=== PATIENT | female | born 1990 | race Caucasian/White ===

== ENCOUNTER → 2019-10-09 12:44 | Outpatient (BNVA) | payer OTHER, SELFPAY | PROVIDERS: Family Provider Nurse Practitioner Family; PCP Nurse Practitioner Family; Visit Provider Obstetrics & Gynecology | DX: Z01.89 Encounter for other specified special examinations (principal) | CPT/HCPCS: 84315 ==

== ENCOUNTER → 2019-11-06 08:00 | Outpatient (BNVA) | payer OTHER, SELFPAY | PROVIDERS: Family Provider Nurse Practitioner Family; PCP Nurse Practitioner Family; Visit Provider Obstetrics & Gynecology | DX: Z34.90 Encounter for supervision of normal pregnancy, unspecified, unspecified trimester (principal) | CPT/HCPCS: 82950; 84315; 85027 ==

== ENCOUNTER → 2019-11-20 16:13 | Outpatient (BNVA) | payer OTHER, SELFPAY | PROVIDERS: Family Provider Nurse Practitioner Family; Visit Provider Obstetrics & Gynecology | DX: Z01.89 Encounter for other specified special examinations (principal) | CPT/HCPCS: 84315 ==

== ENCOUNTER → 2019-12-04 16:01 | Outpatient (BNVA) | payer OTHER, SELFPAY | PROVIDERS: Family Provider Nurse Practitioner Family; Visit Provider Obstetrics & Gynecology | DX: Z01.89 Encounter for other specified special examinations (principal) | CPT/HCPCS: 84315 ==

== ENCOUNTER → 2019-12-19 09:04 | Outpatient (BNVA) | payer OTHER, SELFPAY | PROVIDERS: Family Provider Nurse Practitioner Family; Visit Provider Obstetrics & Gynecology | DX: O99.013 Anemia complicating pregnancy, third trimester (principal) | CPT/HCPCS: 82728; 83540; 83550; 84315; 85027 ==

== ENCOUNTER → 2020-01-01 10:02 | Outpatient (BNVA) | payer OTHER, SELFPAY | PROVIDERS: Family Provider Nurse Practitioner Family; PCP Nurse Practitioner Family; Visit Provider Obstetrics & Gynecology | DX: O09.893 Supervision of other high risk pregnancies, third trimester (principal); O99.340 Other mental disorders complicating pregnancy, unspecified trimester | CPT/HCPCS: 84315; 87081 ==

== ENCOUNTER → 2020-01-08 10:03 | Outpatient (BNVA) | payer OTHER, SELFPAY | PROVIDERS: Family Provider Nurse Practitioner Family; Visit Provider Obstetrics & Gynecology | DX: Z46.89 Encounter for fitting and adjustment of other specified devices (principal) | CPT/HCPCS: 84315 ==

== ENCOUNTER → 2020-01-15 09:01 | Outpatient (BNVA) | payer OTHER, SELFPAY | PROVIDERS: Family Provider Nurse Practitioner Family; Visit Provider Obstetrics & Gynecology Female Pelvic Medicine and Reconstructive Surgery | DX: Z01.89 Encounter for other specified special examinations (principal) | CPT/HCPCS: 84315 ==

== ENCOUNTER 2020-01-20 05:01 | Inpatient (IN) | payer OTHER, SELFPAY ==
[2020-01-20] VITALS (27 sets, daily range): BP systolic 96–133; BP diastolic 61–80; PULSE 43–66; RESP 14–17; TEMP 36.4–36.8; O2SAT 95–96
[2020-01-20 05:41] LABS: Basophils # 0.1 10^3/uL (0.0-0.1); Basophils % 0.5 %; Eosinophils # 0.1 10^3/uL (0.0-0.8); Eosinophils % 1.1 %; Hematocrit 33.7 % (37.0-47.0); Hemoglobin 10.9 g/dL (11.5-15.3); Lymphocytes # 2.4 10^3/uL (0.8-4.8); Lymphocytes % 19.4 %; Mean Corpuscular HGB Conc 32.3 g/dL (30.0-36.0); Mean Corpuscular Hemoglobin 28.4 pg (28.0-34.0); Mean Corpuscular Volume 87.8 fL (81-99); Mean Platelet Volume 10.2 fL (7.4-10.4); Monocytes % 8.3 %; Neutrophils # 8.6 10^3/uL (1.8-7.7); Neutrophils % 70.1 %; Nucleated Red Blood Cells % 0 %; Platelet Count 245 10^3/cmm (130-400); Red Blood Count 3.84 10^6/uL (4.1-5.3); Red Cell Distribution Width 13.8 % (12.1-15.1); White Blood Count 12.3 10^3/uL (4.0-10.0)
--- NOTE | 2020-01-20 06:12 | PC.NURSE ---
Patient states she had a small sip of water with brushing teeth at 0415 AR RN
[2020-01-20] MEDS: lactated ringers 1,000 ML 999 ML IV (06:24)
[2020-01-20] MEDS: clindamycin 900 MG/50 ML PREMIX 100 MG IV (06:24)
--- NOTE | 2020-01-20 06:45 | P.HP_ITS ---
Providers/Chief Complaint Admitting Physician: Ilan Olivarez MD Chief Complaint: Previous section undesired fertitity HPI RATE EXAMINER History of Present Illness Miesha Farah is a 29 year old female 4, para 0-1-2-1 with an LMP of 04/22/2019 and an EDC of 01/27/2020 based on LMP and consistent with a 7-week ultrasound, which places her at 39-0/7 weeks gestation. She is presenting today for a repeat section and sterilization. She states she is adamant that she does not want any further children and wants to proceed with the sterilization. She denies any new health problems since being seen in the office. She denies any recent illnesses. She reports the baby has been moving well. She reports occasional contractions. She denies vaginal bleeding. She denies leaking of fluid. LABS 2013 Cystic fibrosis: Screen negative. 07/04/2019 Blood type: O positive (Du variant). Antibody screen: Negative. Intake CBC: WBC 11.6, Hgb 12.2, Hct 37.3, MCV 87.8, Plt 285. Rubella: Immune (117) Hepatitis B surface antigen: Negative. Hepatitis C antibody: Negative. RPR: Nonreactive. HIV: Negative. Urine drug screen: Negative. Urine culture: Less than 5000 CFU, mixed organisms. TSH: 1.48. 07/18/2019 Gonorrhea: Negative. Chlamydia: Negative. Pap smear: (12/13/2018) Negative for intraepithelial lesion or malignancy. 08/22/2019 Quad screen: Declined. Panorama: Declined. 11/06/2019 28-week CBC: WBC 11.9, Hgb 9.8, Hct 30.9, MCV 86.8, Plt 284. GCT: 104. 01/01/2020 GBS: Negative. OBSTETRICAL ULTRASOUNDS LMP 04/22/2019 ---> EDC 01/27/2020. === 1. 06/10/2019 ---> 7-1/7 WG ---> EDC 01/26/2020. Consistent with dates. Performed at [facility]. FHR present. 2. 09/11/2019 ---> 21-0/7 WG ---> EDC 01/22/2020. EFW 14 oz. (395 g) 84%. Performed at [facility]. Consistent with dates. Normal anatomic survey. Female. Breech. FHR 137 BPM. Anterior placenta without previa. Visually normal amniotic fluid volume. PARALEGAL ASSISTANT 4.9 cm. Cervix 4.4 cm. Review of Systems Const: Denies: fever or chills ENMT: Denies: throat pain or nasal congestion Card: Denies: chest pain, palpitations or lightheadedness Resp: Denies: shortness of breath, productive cough, non-productive cough or wheezing GI: Denies: abdominal pain, nausea, vomiting or diarrhea : Denies: painful urination, genital itching, vaginal bleeding or vaginal discharge Skin/Breast: Denies: rash or new lesion Neuro: Denies: headache, dizziness or seizure-like activity Psych: Denies: anxiety or depression Endo: Denies: excessive urination, excessive thirst or cold intolerance Robinson/Lymph: Denies: easy bruising or easy bleeding Medications/Allergies Allergies Allergy/AdvReac Type Severity Reaction Status Date / Time Penicillins Allergy Rash with Verified 01/15/20 07:23 Amoxicillin PFSH RATE EXAMINER PFSH: Medical History Blood type O+ Depression Surgical History History of delivery (11/28/13) Primary LTCS. Dx: Bleeding placenta previa. Performed by Dr. Olivarez at [facility] in [place], [place]. Family History Mother Hypertension Father Hypertension Grandfather Hypertension Maternal and Paternal Heart disease Maternal and Paternal Hyperlipidemia Maternal and Paternal Grandmother Hypertension Maternal and Paternal Diabetes Maternal Heart disease Maternal Stroke Paternal Hyperlipidemia Maternal and paternal Colon cancer Maternal - diagnosed in her 60s Social History Smoking and tobacco status: former smoker Quit status (tobacco): has quit using tobacco Year quit tobacco: 05/26/2019 Former quit date comment: Quit smoking 05/26/2019. Started smoking at age 18-----1/2 pack per day. D Alcohol intake: former Former alcohol use details: Occational 1+ of wine every couple of weeks Substance/Drug Use: never Other Female Reproductive History: Hx Age of Menarche: 13 Duration of mens es: 3-5 days Cycle Length: every 28 days Menstrual flow: normal/abnormal: normal History History History 4 Term 0 Miscarriages/Ectopic 2 1 Living Children 1 Other History: 1 --->11/28/2013, Emergency section at 35 5/7 weeks gestation for complete placenta previa with hemorrhage per patient. Male (Benjamin), weighing 5 lb 8 1/[address] Olivarez at [facility] in [place], [place]. 2 --->06/27/2018, Miscarriage at approx. 6 weeks gestation. 3 --->10/2018, ?Chemical . She states that her period was 2 days late and urine test was positive. Care IRIS Calculator Estimated Delivery Date Method Current WG Current Estimate 01/27/20 LMP (Certain) 39w 0d Expected Delivery Route/Plan Repeat section with tubal ligation (complete salpingectomy) Specific Issues/Plans * . Previous section x for repeat CD on 01/20/20 * History of depression, * Anxiety and depression currently well controlled on Effexor * Anemia on iron OB Visit Log Initial Weight: 140 lb Date -?-?-?-?--?-?-?-?-?-?-?- EGA Weight BP Albumin -?-?-?-?-?-?-?-?-?-?-?-?- Glucose Nitrate -?-?-?-?-?-?-?-?-?-?-?-?- Blood Fun Ht PRES HR MVMT -?-?-?-?-?-?-?-?-?-?-?-?- Edema Dilation Effacement -?--?-?-?-?-?-?-?-?-?-?- Station 06/17/19 -?-?-?-?-?-?-?-?-?-?-?- 8w 0d 140 lb (+0 oz) 121/70 ALB: NEG GLUC: Norm -?-?-?-?-?-?-?-?-?-?-?-?- NIT: NEG -?-?-?-?-?-?-?-?-?-?-?-?- -?-?-?-?-?-?-?-?-?-?-?-?- Feet: 0 Not examined -?-?-?-?-?-?-?-?-?-?-?- 07/04/19 -?-?-?-?-?-?-?-?-?-?-?- 10w 3d 142 lb 4 oz (+2 lb 4 oz) 122/84 ALB: NEG GLUC: NORM -?-?-?-?-?-?-?-?-?-?-?-?- NIT: NEG -?-?-?-?-?-?-?-?-?-?-?-?- 169 BPM/DOPPLER Not detected -?-?-?-?-?-?-?-?-?-?-?-?- Hands: 0 Face: 0 Feet: 0 -?-?-?-?-?-?-?-?-?-?-?- 07/18/19 -?-?-?-?-?-?-?-?-?-?-?- 12w 3d 145 lb 4 oz (+5 lb 4 oz) 106/68 ALB: NEG GLUC: NORM -?-?-?--?-?-?-?-?-?-?-?-?- NIT: NEG -?-?-?-?-?--?-?-?-?-?-?-?- 161 BPM/DOPPLER Not detected -?-?-?-?-?-?-?-?-?-?--?-?- Hands: 0 Face: 0 Feet: 0 Closed, uneffaced Uneffaced -?-?-?-?-?-?-?-?-?-?-?- 08/22/19 -?-?-?-?-?-?-?-?-?-?-?- 17w 3d 145 lb 4 oz (+5 lb 4 oz) 116/68 ALB: NEG GLUC: NORM -?-?-?-?-?-?-?-?-?-?-?-?- NIT: NEG -?-?-?-?-?-?-?-?-?-?-?-?- 141 BPM/DOPPLER Present -?-?-?-?-?-?-?-?-?-?-?-?- Hands: 0 Face: 0 Feet: 0 -?-?-?-?-?-?-?-?-?-?-?- 09/11/19 -?-?-?-?-?-?-?-?-?-?-?- 20w 2d 148 lb 6.08 oz (+8 lb 6.08 oz) 110/62 ALB: NEG GLUC: NORM -?-?-?-?-?-?-?-?-?-?-?-?- NIT: NEG -?-?-?-?-?-?-?-?-?-?-?-?- 137 BPM/DOPPLER Present -?-?-?-?-?-?-?-?-?-?-?-?- Hands: 0 Face: 0 Feet: 0 -?-?-?-?-?-?-?-?-?-?-?- 10/09/19 -?-?-?-?-?-?-?-?-?-?-?- 24w 2d 154 lb (+14 lb) 116/84 ALB: NEG GLUC: NORM -?-?-?-?-?-?-?-?-?-?-?-?- NIT: NEG -?-?-?-?-?-?-?-?-?-?-?-?- 23.5CM INCONCLUSIVE 145 BPM/DOPPLER -?-?-?-?-?-?-?-?-?-?-?-?- Not examined -?-?-?-?-?-?-?-?-?-?-?- 11/06/19 -?-?-?-?-?-?-?-?-?-?-?- 28w 2d 159 lb 8 oz (+19 lb 8 oz) 112/82 ALB: NEG GLUC: NORM -?-?-?-?-?-?-?-?-?-?-?-?- NIT: NEG -?-?-?-?-?-?-?-?-?-?-?-?- 28CM 146 BMP/DOPPLER Present -?-?-?-?-?-?-?-?-?-?-?-?- Hands: 0 Face: 0 Feet: 0 -?-?-?-?-?-?-?-?-?-?-?- 11/20/19 -?-?-?-?-?-?-?-?-?-?-?- 30w 2d 167 lb 6.08 oz (+27 lb 6.08 oz) 130/72 ALB: NEG GLUC: NORM -?-?-?-?-?-?--?-?-?-?-?-?- NIT: NEG -?-?-?-?-?-?-?-?--?-?-?-?- 31CM 142 BPM/DOPPLER Present -?-?-?-?-?-?-?-?-?-?-?-?- Hands: 0 Face: 0 Feet: 1 -?-?-?-?-?-?-?-?-?-?-?- 12/04/19 -?-?-?-?-?-?-?-?-?-?-?- 32w 2d 168 lb 8 oz (+28 lb 8 oz) 128/82 ALB: NEG GLUC: NORM -?-?-?-?-?-?-?-?-?-?-?-?- NIT: NEG -?-?-?-?-?-?-?-?-?-?-?-?- 33.5CM 121 BPM/DOPPLER Present -?-?-?-?-?-?-?-?-?-?-?-?- Hands: 0 Face: 0 Feet: 1 -?-?-?-?-?-?-?-?-?-?-?- 12/16/19 -?-?-?-?-?-?-?-?-?-?-?- 34w 0d -?-?-?-?-?-?-?-?-?-?-?-?- -?-?-?-?-?-?-?-?-?-?-?-?- -?-?-?-?-?-?-?-?-?-?-?-?- -?-?-?-?-?-?-?-?-?-?-?- 12/19/19 -?-?-?-?-?-?-?-?-?-?-?- 34w 3d 170 lb 4 oz (+30 lb 4 oz) 118/82 Neg (Negat markel) -?-?-?-?-?-?-?-?-?-?-?-?- Norm (Normal) Negative (Negat markel) -?-?-?-?-?-?-?-?-?-?-?-?- Neg (Negative) 34.5 131 act markel -?-?-?-?-?-?-?-?-?-?-?-?- absent -?-?-?-?-?-?-?-?-?-?-?- 01/01/20 -?-?-?-?-?-?-?-?-?-?-?- 36w 2d 172 lb 4 oz (+32 lb 4 oz) 128/86 Neg (Negat markel) -?-?-?-?-?-?-?-?-?-?-?-?- Norm (Normal) Negative (Negat markel) -?-?-?-?-?-?-?-?-?-?-?-?- Neg (Negative) 37 127 act markel -?-?-?-?-?-?-?-?-?-?-?-?- absent fingertip -?-?-?-?-?-?-?-?-?-?-?- -4 01/08/20 -?-?-?-?-?-?-?-?-?-?-?- 37w 2d 170 lb (+30 lb) 136/88 Trace (Negati ve) -?-?-?-?-?-?-?-?-?-?-?-?- Norm (Normal) Negative (Negat markel) -?-?-?-?-?-?-?-?-?-?-?-?- Neg (Negative) 37 - 137 active -?-?-?-?-?-?-?-?-?-?-?-?- trace pedal n/a -?-?-?-?-?-?-?-?-?-?-?- 01/15/20 -?-?-?-?-?-?-?-?-?-?-?- 38w 2d 170 lb (+30 lb) 126/80 Neg (Negative ) -?-?-?-?-?-?-?-?-?-?-?-?- Norm (Normal) Negative (Negat markel) -?-?-?-?-?-?-?-?-?-?-?-?- Neg (Negative) 37.5 vertex 145 active -?-?-?-?-?-?-?-?-?-?-?-?- trace not examined -?-?-?-?-?-?-?-?-?-?-?- 01/20/20 -?-?-?-?-?-?-?-?-?-?-?- 39w 0d 167 lb (+27 lb) -?-?-?-?-?-?-?-?-?-?-?-?- -?-?-?-?-?-?-?-?-?-?-?-?- 135 -?-?-?-?-?-?-?-?-?-?-?-?- -?-?-?-?-?-?-?-?-?-?-?- Notes Visit Date: 01/20/20 No visit notes to display Visit Date: 01/15/20 Patient presents today at 38+2 weeks scheduled to undergo repeat section and tubal next week has no questions today OB is okay. Clem Rosario DO on 01/15/20 Visit Date: 01/08/20 JULI @ 37w2d-----> no complaints; previous delivery x2-for repeat at 39 weeks; GBS negative; desires sterilization-private insurance; anemia compliant with iron; depression controlled with medication Elena Hardwick MD on 01/08/20 Visit Date: 01/01/20 JULI at 36-2/7 WG. No complaints. GBS testing today. Labor precautions discussed. Scheduled for repeat section with tubal ligation on 01/20/2020. Started on Effexor today due to history of depression. Continue iron due to anemia. Ilan Olivarez MD on 01/02/20 posterior, deepika Olivarez MD on 01/01/20 Visit Date: 12/19/19 No visit notes to display Visit Date: 12/16/19 No visit notes to display Visit Date: 12/04/19 JULI at 32-2/7 WG. ?Reporting increased edema. ?Patient wearing compression hose. ?Still planning to receive pertussis vaccine. ?Plan hemogram at 34 weeks. ?Scheduled for repeat section and tubal ligation. Visit Date: 11/20/19 JULI at 30-2/7 WG. ? labor precautions discussed. ?GCT normal. ? Anemia - taking iron twice a day, plan hemogram at 34 weeks. ?Scheduled for repeat section with tubal ligation on January 19. Visit Date: 11/06/19 JULI at 28-2/7 WG. ?No new complaints. ?GCT and hemogram today. ?Pertussis vaccine recommended. ? labor precautions discussed. ?Patient has decided to have a repeat section with complete removal of both fallopian tubes. ?We will schedule during 39th week. ?Weight gain expectations for the rest the discussed. Visit Date: 10/09/19 JULI at 24 2/7 weeks. The patient was counseled regarding care, signs and symptoms of labor. ?She was counseled regarding gestational di abetes screening at the next visit. Visit Date: 09/11/19 JULI at 20-2/7 WG. ?No new complaints. ?Screening ultrasound performed and reviewed with patient. ?Patient planning repeat section with tubal ligation. Visit Date: 08/22/19 JULI at 17-3/7 WG. ?No complaints. ?Declined Quad screen and Panorama. ?Ultrasound in approximately 3 weeks for anatomic survey. Visit Date: 07/18/19 No visit notes to display Visit Date: 07/04/19 Initial OB visit at 10-4/7 WG based on LMP and consistent with 7 week ultrasound. ?No complaints. ?Sure of LMP. ? labs drawn. ?Previous - considering repeat . ?Depression and anxiety present before . ?Not requiring medication at this time. ?OB exam next visit. Visit Date: 06/17/19 OBI at 8.0 WG----------> 28 y/o with LMP of 04/22/19 and EDC of 01/27/20 based on LMP and consistent with 7 week U/S. - hx of previous c/s; low transverse section documented in [address] Olivarez - hx of delivery; and 2013 at 35 and 5 weeks gestation due to placenta previa - hx of placenta previa; did not require pp transfusion - hx of anxiety and depression prior to ; weaned off effexor prio r to conceiving; discussed potential need during the . -Ob packet provided. Reviewed routine vist schedule, labs, approved medications in , discussed the importance of avoiding nicotine/alcohol/drugs and the effects this has on her and the , and when to notify the doctor. Medical and obstetrical history reviewed. ? -Continue vitamins. - labs at next visit; discussed NIPT, QUAD, AFP, CF. All questions answered to her satisfaction. Greater than 50% of the visit was spent in counseling and coordinating obstetrical care. Total visit time: 30 minutes. Vitals/I&O/Wt Last Vital Signs Temp 98.3 F 01/20/20 05:17 Weight last 48 hrs Weight 167 lb Physical Exam Const: COMMON NORMALS: no apparent distress, average body habitus, alert and well nourished GENERAL APPEARANCE: well developed ORIENTATION/CONSCIOUSNESS: Yes oriented to person, Yes oriented to place and Yes oriented to time Neck/C-Spine: COMMON NORMALS: thyroid normal GENERAL: Yes trachea midline THYROID: thyroid normal Resp: COMMON NORMALS: normal respiratory effort and clear to auscultation bilaterally AUSCULTATION: clear to auscultation bilaterally Cardio: COMMON NORMALS: regular rate, regular rhythm, no gallops, no murmurs and no rub RATE: regular rate RHYTHM: regular rhythm GI: COMMON NORMALS: soft to palpation, non-tender, no hepatosplenomegaly and no masses (Except for nontender gravid uterus.) INSPECTION: Yes scar (Pfannenstiel scar present) AUSCULTATION: Yes normoactive bowel sounds PALPATION: Yes soft, Yes no hepatosplenomegaly and No hernia : EXTERNAL FEMALE EXAM: No hernia Neuro: SENSORIUM/ORIENTATION: Yes alert, Yes oriented to person, Yes oriented to place and Yes oriented to time Psych: COMMON NORMALS: affect normal MOOD & AFFECT: Yes euthymic mood Data : 01/20/20 05:00 A&P Assessment and plan (1) Supervision of other high risk pregnancies, third trimester: 4, para 0-1-2-1 with an LMP of 04/22/2019 and an EDC of 01/27/2020 based on LMP and consistent with a 7-week ultrasound. 1. at 39-0/7 weeks gestation. 2. No new complaints. 3. Prior section, see separate diagnosis. Presenting for repeat section today. 4. Desires complete removal of fallopian tubes. Status: Acute (2) Encounter for maternal care for low transverse scar from previous delivery: 11/28/2013: Emergency due to bleeding placenta previa. Documen marcella low transverse section. (Today's visit) Patient desires repeat section. Risks of section was discussed with the patient and her partner including bleeding to the point of needing a blood transfusion, infection, and injury to intra-abdominal organs including bowel, bladder, blood vessels, nerves, and ureters. Questions were answered. Patient still desires to proceed with surgery. Status: Acute (3) Mental disorder affecting : 8 weeks--patient had depression and anxiety prior to --weaned off Effexor for approx 1 year prior to conception; feeling well without meds. 01/01/2020: Started Effexor XR 75 mg daily (Today's visit) Reports has been doing well with Effexor. Status: Acute Qualifiers: Trimester: third trimester Qualified Code(s): O99.343 - Other mental disorders complicating , third trimester (4) Anemia affecting : 07/04/2019: H&H 12.2/37.3, MCV 87.8 11/06/2019: (28 wk) H&H 9.8/30.9, MCV 86.8. Started on iron twice a day. 12/19/2019: (34 wk) H&H 10.1/31.8, MCV 89.1 (Today's visit) Blood count has improved. H&H is 10.9 and 33.7 today. Patient has been taking iron. Status: Acute Qualifiers: Trimester: third trimester Qualified Code(s): O99.013 - Anemia compl icating , third trimester (5) Sterilization education: 11/06/2019: Permanence of sterilization was discussed with the patient in detail. Alternatives including control pills, Ortho Evra, NuvaRing, Depo- Provera, IUDs, Nexplanon, condoms, diaphragms, family planning methods, and vasectomy were discussed with the patient. Risks and failure rates associated with these methods were discussed. Different sterilization methods including and interval sterilization by partial salpingectomy, complete salpingectomy, tubal fulguration, and Falope ring application were discussed including failure rates, surgical risks, and expectations following surgery. Inability of complete salpingectomy to be reversed was discussed. Risk of ectopic was discussed. (Patient has private insurance). Patient desires complete removal of tubes. (Today's visit) Patient reports that she still wants to proceed with sterilization. Permanence of the procedure was reviewed with the patient. The inability of the complete removal of the tubes to be reversed was discussed. Specific risks of the surgery including failure rate and risk for ectopic were discussed. Questions were answered. Patient still wished to proceed with complete removal of tubes. Status: Acute Attestations Medical Necessity Statement*: Patient having a repeat section performed today. Coding Level of Care Code Acute Flash Designer for Tomás Hardy Diagnoses Supervision of other high risk pregnancies, third trimester O09.893 Encounter for maternal care for low transverse scar from previous delivery O34.211 Mental disorder affecting O99.343 Trimester: third trimester Anemia affecting O99.013 Trimester: third trimester Sterilization education Z30.09
[2020-01-20] MEDS: citric acid-sodium citrate 30 mL UDC PO (06:49)
[2020-01-20] MEDS: famotidine 20 mg/2 mL INJ IVP (06:50)
[2020-01-20] MEDS: metoclopramide 5 mg/mL SDV 2 mL 10 MG IVP ×2 (06:50→12:38)
[2020-01-20] MEDS: lactated ringers 1,000 ML 125 ML IV (06:56)
--- NOTE | 2020-01-20 08:18 | PM.OP ---
Operative Report Date of procedure: January 20, 2020 Pre-op Diagnosis: 1. Previous section, declines 2. at 39-0/7 weeks gestation 3. Anemia in in third trimester 4. Mental disorder affecting in third trimester (depression) 5. Undesired fertility. Post-op Diagnosis: 1. Previous section, declines - delivered 2. at 39-0/7 weeks gestation 3. Anemia in - delivered 4. Mental disorder in - delivered 5. Undesired fertility 6. Viable female Procedure Done: Repeat low transverse section with bilateral complete salpingectomy for sterilization Specimens removed/disposition: Right and left fallopian tubes Surgeon: Ilan Olivarez Ceramics Engineer: None Anesthesia: Other (Spinal) Estimated blood loss (mL): 200 IV fluids (mL): 800 Complications: None Findings: 1. Viable female , cephalic presentation, weighing 5 lbs 15 oz (2990 g) with a length of 19 inches and Apgars of 9 at 1 minute and 9 at 5 minutes. 2. Normal-appearing uterus, tubes, and ovaries. Brief History: Patient is a 29-year-old white female 4, para 0-1-2-1 with an LMP of 04/22/2019 and an EDC of 01/27/2020 based on LMP and consistent with 7-week ultrasound. She is currently at 39-0/7 weeks gestation. She presented to labor and delivery for repeat section and sterilization. Prior to sterilization, she was still adamant that she wanted to proceed with it. She was requesting complete removal of both tubes. Procedure: Patient was taken to the operating room where spinal anesthesia was obtained. She was prepped and draped in the usual sterile fashion in a dorsal supine position with a leftward tilt. Ornelas catheter and sequential compression boots had been placed prior to starting the case. Patient's prior Pfannenstiel scar was excised with a knife and incision was carried down to the underlying fascia with the knife. Fascia was incised in the midline with the knife and extended laterally with Mckeon scissors. Superior aspect of the fascia was grasped with Ayad clamps, elevated, and sharply and bluntly dissected. The inferior aspect of the fascia was grasped with Ayad clamps, elevated, and sharply and bluntly dissected. The rectus muscles were in the midline. Peritoneum was sharply entered. Peritoneal incision was extended both superiorly and inferiorly with good visualization of the bladder. Bladder blade was inserted. The vesicouterine peritoneum was tented up and sharply entered. It was extended laterally and the bladder flap was created digitally. Bladder blade was reinserted. A transverse incision was made with the knife in the lower uterine segment. Clear fluid was obtained upon entry into the uterine cavity. The infant's head was delivered. One loop of loose nuchal cord was noted and reduced. The rest of the delivered atraumatically with one loop of loose body cord noted. Nose and mouth were suctioned with bulb suction. Cord was clamped and cut and the was handed off to Dr. Neville and the waiting nurses. Cord blood was obtained. Placenta was delivered via uterine massage. Patient received 20 units of Pitocin in the IV fluids. The uterus was exteriorized and cleared of clots and debris. The uterine incision was closed in a running locking fashion using 0 Vicryl suture. The incision was imbricated using 0 Vicryl suture in a horizontal mattress fashion. The incision was inspected and noted to be hemostatic. The left fallopian tube was grasped with [place] clamps. The mesosalpinx was transilluminated, identifying the vessels coming to the tubes. Using 2-0 plain suture, the vessels coming through the mesosalpinx to the fallopian tube were individually tied. The mesosalpinx was cut with electrocautery until the proximal end of the tube and the vessels at the distal end of the tube were reached. The proximal end of the tube was tied with a free tie of 0 plain suture. The vessels at the distal end of the tube were tied with a free tie of 0 plain suture. The remaining portion of the mesosalpinx and the proximal end of the tube were then cut and the tube completely excised. The right fallopian tube was grasped with [place] clamps. The mesosalpinx was transilluminated, identifying the vessels coming to the tubes. Using 2-0 plain suture, the vessels coming through the mesosalpinx to the fallopian tube were individually tied. The mesosalpinx was cut with electrocautery until the proximal end of the tube and the vessels at the distal end of the tube were reached. The proximal end of the tube was tied with a free tie of oh plain suture. The vessels at the distal end of the tube were tied with a free tie of oh plain suture. The remaining portion of the mesosalpinx and tube were then cut and the tube was completely excised. Posterior cul-de-sac was thoroughly irrigated and cleared of clots and blood. The uterus was returned to the abdomen. The uterine incision was irrigated and noted to be hemostatic. The gutters were cleared of clots and blood. The rectus muscles and peritoneum were reapproximated in the midline using interrupted stitches of 2-0 Vicryl suture. The muscle layer was irrigated and noted to be hemostatic. The fascia was reapproximated using 0 Vicryl suture in a running fashion. The subcutaneous layer was irrigated and brought to hemostasis using electrocautery. It was reapproximated using 3-0 plain suture in an interrupted fashion. Skin was reapproximated using 4-0 Vicryl suture in a subcuticular fashion. Steri-Strips were applied. Patient tolerated the procedures well. Sponge, needle, and instrument counts were correct. DRAINS: Ornelas catheter POSTOPERATIVE STATUS: The patient was left to recover in satisfactory condition
[2020-01-20] MEDS: lanolin oint 7 gm 1 APPLIC TOPICAL (10:15)
[2020-01-20] MEDS: ondansetron 2 mg/ML SDV 2 mL 4 MG IVP ×2 (10:15→11:48)
[2020-01-20] MEDS: dextrose 5%-lactated ringers 1,000 ML 125 ML IV ×2 (10:15→18:32)
[2020-01-20] MEDS: scopolamine 1.5 Patch 1 PATCH TRANSDERMA (13:01)
[2020-01-20] MEDS: ketorolac 30 mg/mL INJ IVP (13:52)
[2020-01-21] MEDS: HYDROcodone-acetaminophen 5-325 mg Tablet PO ×2 (00:28→11:09)
[2020-01-21 02:10] VITALS: BP 105/68; PULSE 49; RESP 16; TEMP 36.6; O2SAT 95
[2020-01-21 04:45] VITALS: BP 110/7; PULSE 61; RESP 16; TEMP 36.3; O2SAT 97
[2020-01-21 06:05] LABS: Hematocrit 27.3 % (37.0-47.0); Hemoglobin 8.6 g/dL (11.5-15.3); Mean Corpuscular HGB Conc 31.5 g/dL (30.0-36.0); Mean Corpuscular Hemoglobin 28.4 pg (28.0-34.0); Mean Corpuscular Volume 90.1 fL (81-99); Mean Platelet Volume 10.3 fL (7.4-10.4); Platelet Count 230 10^3/cmm (130-400); Red Blood Count 3.03 10^6/uL (4.1-5.3); Red Cell Distribution Width 13.9 % (12.1-15.1); White Blood Count 14.7 10^3/uL (4.0-10.0)
--- NOTE | 2020-01-21 08:43 | ANE.PACU2 ---
 Inpatient post-anesthesia follow up: Airway intact: Yes Vital signs: Temperature 97.4 F Pulse Rate 61 Respiratory Rate 16 Blood Pressure 110/7 Pulse Oximetry 97 Oxygen Delivery Me thod Room Air Oxygen Flow Rate Fraction of Inspir ed Oxygen Hydration adequate: Yes Nausea and vomiting: No Mental status: Baseline Additional Comments: no headaches or weakness or signs of spinal site infection
--- NOTE | 2020-01-21 09:23 | P.PN_ITS ---
Subjective Subjective: Interval history: Reports feeling much better today. States had significant nausea and vomiting yesterday after . States nausea and vomiting is gone this morning, but currently has the scopolamine patch on. Denies lightheadedness or dizziness with ambulation. Denies shortness of breath or chest pains. Reports tolerating clear liquids this morning. Denies passing flatus. Denies problems with urination. Reports pain has been well controlled with the Duramorph. Vitals/I&O/Wt Last Vital Signs Temp 97.4 F L 01/21/20 04:45 Pulse 61 01/21/20 04:45 Resp 16 01/21/20 04:45 BP 110/7 01/21/20 04:45 Pulse Ox 97 01/21/20 04:45 01/20/20 01/21/20 01/21/20 22:59 06:59 14:59 Intake Total 1000 / 1902.75 964.583 / 2867.333 Output Total 350 / 770 550 / 1320 Balance 650 / 1132.75 414.583 / 1547.333 Weight last 48 hrs Weight 167 lb Physical Exam Const: COMMON NORMALS: no apparent distress, average body habitus, alert and well nourished GENERAL APPEARANCE: well developed ORIENTATION/CONSCIOUSNESS: Yes oriented to person, Yes oriented to place and Yes oriented to time Resp: COMMON NORMALS: normal respiratory effort and clear to auscultation bilaterally AUSCULTATION: clear to auscultation bilaterally Cardio: COMMON NORMALS: regular rate, regular rhythm, no gallops, no murmurs and no rub RATE: regular rate RHYTHM: regular rhythm GI: COMMON NORMALS: soft to palpation, no hepatosplenomegaly and no masses (Except for mildly tender, firm uterus, 2 fingerbreadths below umbilicus) INSPECTION: Yes incision (Clean, dry, and intact with Steri-Strips present) AUSCULTATION: Yes normoactive bowel sounds PALPATION: Yes soft, Yes tender (Lower abdomin), Yes no hepatosplenomegaly and No hernia : EXTERNAL FEMALE EXAM: No hernia Extremity: COMMON NORMALS: no calf tenderness GENERAL: Yes edema (Trace to 1+ lower extremity edema) Neuro: SENSORIUM/ORIENTATION: Yes alert, Yes oriented to person, Yes oriented to place and Yes oriented to time Psych: COMMON NORMALS: affect normal MOOD & AFFECT: Yes euthymic mood Skin: COMMON NORMALS: no rashes or lesions noted GENERAL SKIN EXAM: no rashes or lesions noted Urinary Catheter Management^: Ornelas: Cath Placed During This Visit: yes, but has since been removed by the nurse Reason for Continuing Indwelling Catheter: Other Urinary Catheter Date of Insertion: 01/20/20 Urinary Catheter Time of Insertion: 07:00 Date Urinary Catheter Removed: 01/21/20 Time Urinary Catheter Discontinued: 02:30 Data : 01/21/20 05:50 A&P Assessment and plan (1) delivery delivered: Postoperative day 1, status post repeat section. Patient doing well overall. Initially had nausea and vomiting requiring parenteral antiemetics yesterday. This has resolved as of this morning. She is currently tolerating clear liquids. Will advance to regular diet when passing flatus. Increase activities today. Discussed with patient use of oral pain medication as Duramorph wears off. Status: Acute (2) Anemia during , delivered, current hospitalization: Patient had anemia prior to delivery and H&H dropped expected amount following delivery. Patient will be continued on oral iron after discharge. Status: Acute (3) Mental disorder in , delivered: Patient had been on Effexor the last month of the . This has been continued. Status: Acute (4) Sterilization education: Patient had sterilization (bilateral complete salpingectomy) performed at time of section. Status: Acute Attestations Medical Necessity Statement*: Patient is 1 day status post section. She will be staying in the hospital at least until tomorrow. She is currently n ot tolerating regular food. Coding Level of Care Code Acute [employer] Project Manager for Chg Fwd Diagnoses delivery delivered O82 Anemia during , delivered, current hospitalization O99.02 Mental disorder in , delivered O99.344 Sterilization education Z30.09
[2020-01-21] MEDS: docusate sodium 100 mg Capsule PO ×2 (09:24→17:44)
[2020-01-21] MEDS: venlafaxine ER (24HR) 75 mg Capsule PO (09:24)
[2020-01-21] MEDS: prenatal vitamin Capsule 1 CAP PO (09:24)
[2020-01-21 11:02] VITALS: BP 111/71; PULSE 56; RESP 18; TEMP 36.7
[2020-01-21 16:38] VITALS: BP 131/77; PULSE 60; RESP 18; TEMP 36.8
[2020-01-21 21:00] VITALS: BP 132/86; PULSE 60; RESP 16; TEMP 36.3; O2SAT 98
--- NOTE | 2020-01-21 23:43 | PC.NURSE ---
Patient reports that she passed gas while ambulating and is now snacking on cheese crackers.
[2020-01-22] MEDS: HYDROcodone-acetaminophen 5-325 mg Tablet PO ×2 (00:55→05:40)
[2020-01-22 05:00] VITALS: BP 133/79; PULSE 68; RESP 17; TEMP 36.7; O2SAT 97
--- NOTE | 2020-01-22 08:14 | PM.DCS ---
Discharge Providers Date of Admission: 01/20/20 05:01 Date of Discharge: January 22, 2020 Attending Provider at Admission: Ilan Olivarez MD Attending Provider at Discharge: Ilan Olivarez MD Diagnoses at Discharge Discharge Diagnosis (1) delivery delivered: Status: Acute (2) Sterilization education: Status: Acute (3) Anemia during , delivered, current hospitalization: Status: Acute (4) Mental disorder in , delivered: Status: Acute Reason for Visit Reason for Visit: Reason For Visit: [facility] Hospital Course: Patient is a 29-year-old white female 4, now para 1-1-2-2 with an LMP of 04/22/2019 and an EDC of 01/27/2020 based on LMP and consistent with a 7-week ultrasound, which placed her at 39-0/7 weeks gestation at the time of admission. Patient had had a prior section and was presenting for repeat section. She had also decided that she did not want any further children and wanted to proceed with sterilization. She was requesting complete removal of fallopian tubes. Her had been complicated by prepregnancy depression and also anemia during . She was admitted to the hospital for a repeat low transverse section and bilateral complete salpingectomy were performed. She tolerated the surgery well. She had a viable female weighing 5 lbs 15 oz (2990 g) with a length of 19 inches and Apgars of 9 at 1 minute and 9 at 5 minutes. Patient received Duramorph in the spinal for pain management following surgery. Following surgery patient had significant postoperative nausea and vomiting requiring multiple medications before symptoms came under control. This included IV Zofran, IV Reglan, and scopolamine patch. POSTOPERATIVE DAY 1 Patient reports doing better. Nausea vomiting had resolved by that morning. She was tolerating clear liquids. Her pain was well controlled with the Duramorph. She was ambulating without lightheadedness or dizziness. She denies shortness of breath or chest pains. She was not passing flatus at that time. She was afebrile with stable vital signs. She was noted to be anemic, but was consistent with expected drop in H&H compared to pre-surgical H&H. Activities were increased through the day. She was started on oral pain medications. POSTOPERATIVE DAY 2 Patient reports doing well. She reports tolerating a regular diet this morning. She denies any shortness of breath or chest pains. She denies lightheadedness or dizziness with ambulation. She states her pain is been well controlled on oral medications. She reports passing flatus. She denies any problems with urination. She is breast-feeding. She is requesting to be released to go home. PHYSICAL EXAM: See below PLAN: Discharge to home later this morning. Discharge instructions discussed with patient. Patient to follow-up in the office in 2 and 6 weeks following discharge. She was instructed to continue vitamins, iron, and Effexor after going home. She will be given a prescriptions for ibuprofen and Mehama. Patient had requested prescription for antiemetic after she goes home due to fear of getting sick at home. She will be given a prescription for a few Phenergan tablets. Physical Exam Const: COMMON NORMALS: no apparent distress, average body habitus, alert and well nourished GENERAL APPEARANCE: well developed ORIENTATION/CONSCIOUSNESS: Yes oriented to person, Yes oriented to place and Yes oriented to time Resp: COMMON NORMALS: normal respiratory effort and clear to auscultation bilaterally AUSCULTATION: clear to auscultation bilaterally Cardio: COMMON NORMALS: regular rate, regular rhythm, no gallops, no murmurs and no rub RATE: regular rate RHYTHM: regular rhythm GI: COMMON NORMALS: soft to palpation, no hepatosplenomegaly and no masses (Except for mildly tender, firm uterus, approximately 2 fingerbreadths below umbilicus) INSPECTION: Yes incision (Clean, dry, and intact with Steri-Strips present) AUSCULTATION: Yes normoactive bowel sounds PALPATION: Yes soft, Yes tender (Lower abdomen), Yes no hepatosplenomegaly and No hernia : EXTERNAL FEMALE EXAM: No hernia Extremity: COMMON NORMALS: no calf tenderness GENERAL: Yes edema (Trace lower extremity) Neuro: SENSORIUM/ORIENTATION: Yes alert, Yes oriented to person, Yes oriented to place and Yes oriented to time Psych: COMMON NORMALS: affect normal MOOD & AFFECT: Yes euthymic mood Skin: COMMON NORMALS: no rashes or lesions noted GENERAL SKIN EXAM: no rashes or lesions noted Urinary Catheter Management^: Ornelas: Cath Placed During This Visit: yes, but has since been removed by the nurse Reason for Continuing Indwelling Catheter: Other Urinary Catheter Date of Insertion: 01/20/20 Urinary Catheter Time of Insertion: 07:00 Date Urinary Catheter Removed: 01/21/20 Time Urinary Catheter Discontinued: 02:30 Discharge Data Data Completed and Pending: Completed Studies During Hospitalization Category Date Time Status Pathology: Surgic al [PTH] Routine Pth 01/20/20 10:35 Completed Vitals: Last Vital Signs Temp 98.1 F 01/22/20 05:00 Pulse 68 01/22/20 05:00 Resp 17 01/22/20 05:00 BP 133/79 01/22/20 05:00 Pulse Ox 97 01/22/20 05:00 Discharge Plan Discharge Patient Disposition: Home, Self-Care Condition: Stable Prescriptions: New hydrocodone-acetaminophen 5-325 mg Tablet 1 - 2 tab PO Q6H PRN (Reason: Moderate To Severe Pain) Qty: 30 RF: 0 ibuprofen 800 mg Tablet 800 mg PO TID PRN (Reason: pain) Qty: 40 RF: 0 promethazine 25 mg tablet 25 mg PO Q6H PRN (Reason: nausea and vomiting) Qty: 10 RF: 0 Continued acetaminophen [Tylenol] 325 mg tablet 325 mg PO DAILY PRN (Reason: Pain) RF: 0 venlafaxine [Effexor XR] 75 mg capsule,extended release 24hr 75 mg PO DAILY Qty: 30 RF: 6 prenat.vits,bleen,xal-ghex-azkxt Tablet 1 tab PO DAILY RF: 0 psyllium husk [Metamucil] 0.4 gram capsule See Rx Instructions PO DAILY PRN (Reason: Constipation) RF: 0 Probiotic Acidophilus 1.5 mg (250 million cell) capsule See Rx Instructions PO DAILY RF: 0 cetirizine [Zyrtec] 10 mg tablet 10 mg PO BID PRN (Reason: Allergy Symptoms) RF: 0 ferrous sulfate 325 mg (65 mg iron) tablet 325 mg PO BID Qty: 60 RF: 4 Discharge Orders: Discharge Order (Routine); Ordered 01/22/20 Ordered By: Ilan Olivarez Referrals: Ilan Olivarez MD [Physician] - 2 weeks (2 weeks for incision check 6 weeks for visit) Discharge Diet: Regular Discharge Activity: Limit activity as instructed Patient Instructions: OB [facility] Discharge Attestations Time Spent in Discharge Care*: less than 30 min Status at Discharge: Cognitive status at discharge: cognitively intact, Behavioral status at discharge: cooperative, Functional status at discharge: independent ambulation Overall status at discharge: patient is progressing back to baseline Quality Metrics Clinical Quality Measures During this hospital stay, did patient experience: None Coding Level of Care Code Acute Aviation Medicine Specialist for Chg Fwd Diagnoses delivery delivered O82 Sterilization education Z30.09 Anemia during , delivered, current hospitalization O99.02 Mental disorder in , delivered O99.344
[2020-01-22] MEDS: docusate sodium 100 mg Capsule PO (08:58)
[2020-01-22] MEDS: venlafaxine ER (24HR) 75 mg Capsule PO (08:58)
[2020-01-22] MEDS: prenatal vitamin Capsule 1 CAP PO (08:58)
[2020-01-22 10:32] VITALS: BP 129/69; PULSE 63; RESP 18; TEMP 36.8; O2SAT 97
[2020-01-22 13:05] VITALS: BP 143/86; PULSE 57; RESP 18; TEMP 36.8; O2SAT 96
== END 2020-01-22 14:02 | disposition home or self-care (01) | DRG 785 ==
PROVIDERS: Admitting Provider Obstetrics & Gynecology; Visit Provider Obstetrics & Gynecology
PROC: 10D00Z1 Extraction of Products of Conception, Low, Open Approach (ICD-10-PCS; CPT 59514; principal; 2020-01-20 07:00)
DX: O34.211 Maternal care for low transverse scar from previous cesarean delivery (principal); N85.8 Other specified noninflammatory disorders of uterus; Z3A.39 39 weeks gestation of pregnancy; Z37.0 Single live birth; O99.344 Other mental disorders complicating childbirth; O99.02 Anemia complicating childbirth; D64.9 Anemia, unspecified; Z30.2 Encounter for sterilization; O69.81X0 Labor and delivery complicated by cord around neck, without compression, not applicable or unspecified; F41.8 Other specified anxiety disorders
CPT/HCPCS: 12345; 36415; 51702; 59025; 59409; 85025; 85027; 86900; 88302; 96375; J1100; J1580; J1885; J2274; J2405; J2590; J2765; J3490

== ENCOUNTER → 2020-03-04 13:35 | Outpatient (BNVA) | payer OTHER, SELFPAY | PROVIDERS: Visit Provider Obstetrics & Gynecology | DX: Z39.2 Encounter for routine postpartum follow-up (principal); O90.81 Anemia of the puerperium; Z48.816 Encounter for surgical aftercare following surgery on the genitourinary system; F32.9 Major depressive disorder, single episode, unspecified | CPT/HCPCS: 85027 ==

== ENCOUNTER → 2022-04-20 16:05 | Outpatient (BNVA) | payer OTHER, SELFPAY | PROVIDERS: Visit Provider Nurse Practitioner Women's Health | DX: Z01.419 Encounter for gynecological examination (general) (routine) without abnormal findings (principal) | CPT/HCPCS: 87624 ==

== ENCOUNTER 2023-02-01 14:14 | Outpatient (CLI) | payer OTHER, SELFPAY ==
--- NOTE | 2023-02-01 14:21 | MM_ITS ---
WS: [id number] BILATERAL 3D TOMOSYNTHESIS DIGITAL DIAGNOSTIC MAMMOGRAPHY WITH CAD CLINICAL INFORMATION: N63.0 - Unspecified lump in unspecified breast HISTORY: Palpable lump LEFT breast COMPARISON: None. TECHNIQUE: Bilateral CC, MLO, and ML views. FINDINGS: The breasts are composed of heterogeneous fibroglandular density, which can limit the detection of sm all underlying mass lesions. Palpable marker upper outer LEFT breast. Normal underlying parenchymal t issue. Ultrasound described below. RIGHT breast is unremarkable. ULTRASOUND BREAST LEFT TECHNIQUE: Ultrasound left breast focused area of concern. CLINICAL INFORMATION: N63.0 - Unspecified lump in unspecified breast FINDINGS: Ultrasound LEFT breast 2:00 position 4 cm from the nipple in the area of palpable concern. Normal und erlying parenchymal tissue. No cystic or solid lesions. No suspicious lesions to target for biopsy. IMPRESSION MM/[place] [id number] BI-RADS: 2-Benign FOLLOW UP: See Report Recommend annual screening mammography age 40
== END 2023-02-01 14:15 | disposition home or self-care (01) ==
LOC: RAD 14:17
PROVIDERS: PCP Nurse Practitioner Family; Visit Provider Nurse Practitioner Family
DX: N63.20 Unspecified lump in the left breast, unspecified quadrant (principal)
CPT/HCPCS: 76642; 77062; G0279

== ENCOUNTER 2024-05-09 10:31 | Outpatient (CLI) | payer OTHER, SELFPAY ==
--- NOTE | 2024-05-09 10:38 | XR_ITS ---
WS: [id number] Right elbow, 3 views, 05/09/2024 Clinical Data: M25.521 - Pain in right elbow Comparison: None. Findings: No fractures or dislocations are seen. The radial head is normal. The soft tissues show posterior sof t tissue swelling. There is a positive posterior fat pad sign which could indicate an occult fracture. XR/XR elbow RT min 3V* [id number] Impression: 1. No definite fracture is seen. 2. Positive posterior fat pad sign implies an occult fracture and imaging in 3 to 5 days may be helpful to define a fracture.
== END 2024-05-09 10:32 | disposition home or self-care (01) ==
LOC: RAD 10:32
PROVIDERS: PCP Nurse Practitioner Family; Visit Provider Nurse Practitioner Family
DX: M79.4 Hypertrophy of (infrapatellar) fat pad (principal); M25.521 Pain in right elbow
CPT/HCPCS: 73080

== ENCOUNTER → 2024-05-14 09:02 | Outpatient (BNVA) | payer OTHER, SELFPAY | PROVIDERS: PCP Nurse Practitioner Family; Referring Provider Nurse Practitioner Family; Visit Provider Specialist | DX: M25.521 Pain in right elbow (principal) | CPT/HCPCS: 73080 ==

== ENCOUNTER 2024-05-14 10:25 | Outpatient (CLI) | payer OTHER, SELFPAY | END 2024-05-14 10:26 | disposition home or self-care (01) | LOC: SPT 10:25 | PROVIDERS: PCP Nurse Practitioner Family; Visit Provider Specialist | DX: Z46.89 Encounter for fitting and adjustment of other specified devices (principal); S59.909D Unspecified injury of unspecified elbow, subsequent encounter; S52.121D Displaced fracture of head of right radius, subsequent encounter for closed fracture with routine healing; X58.XXXD Exposure to other specified factors, subsequent encounter | CPT/HCPCS: 97760; L3761 ==

== ENCOUNTER → 2024-05-28 13:50 | Outpatient (BNVA) | payer OTHER, SELFPAY | PROVIDERS: PCP Nurse Practitioner Family; Visit Provider Specialist | DX: S52.124D Nondisplaced fracture of head of right radius, subsequent encounter for closed fracture with routine healing (principal); X58.XXXD Exposure to other specified factors, subsequent encounter | CPT/HCPCS: 73080 ==

== ENCOUNTER → 2024-06-23 13:58 | Outpatient (BNVA) | payer OTHER, SELFPAY | PROVIDERS: PCP Nurse Practitioner Family; Visit Provider Specialist | DX: S52.124D Nondisplaced fracture of head of right radius, subsequent encounter for closed fracture with routine healing (principal); X58.XXXD Exposure to other specified factors, subsequent encounter | CPT/HCPCS: 73080 ==

== ENCOUNTER 2024-06-27 06:00 | Outpatient (RCR) | payer OTHER, SELFPAY | END 2024-07-07 23:59 | disposition home or self-care (01) | LOC: TPT 06:00 | PROVIDERS: PCP Nurse Practitioner Family; Visit Provider Specialist | DX: S52.124D Nondisplaced fracture of head of right radius, subsequent encounter for closed fracture with routine healing (principal); X58.XXXD Exposure to other specified factors, subsequent encounter | CPT/HCPCS: 97110; 97161 ==

== ENCOUNTER 2024-07-08 06:00 | Outpatient (RCR) | payer OTHER, SELFPAY | END 2024-07-16 23:59 | disposition home or self-care (01) | LOC: TPT 06:00 | PROVIDERS: PCP Nurse Practitioner Family; Visit Provider Specialist | DX: S52.124D Nondisplaced fracture of head of right radius, subsequent encounter for closed fracture with routine healing (principal); X58.XXXD Exposure to other specified factors, subsequent encounter | CPT/HCPCS: 97110; 97164 ==

== ENCOUNTER → 2024-11-14 09:25 | Outpatient (BNVA) | payer BC, SELFPAY | PROVIDERS: Family Provider Nurse Practitioner Family; PCP Nurse Practitioner Family; Visit Provider Nurse Practitioner Family | DX: J10.1 Influenza due to other identified influenza virus with other respiratory manifestations (principal); H66.91 Otitis media, unspecified, right ear | CPT/HCPCS: 87400 ==

== ENCOUNTER → 2025-02-19 15:20 | Outpatient (BNVA) | payer BC, SELFPAY | PROVIDERS: Family Provider Nurse Practitioner Family; PCP Nurse Practitioner Family; Visit Provider Podiatrist Foot & Ankle Surgery | DX: S91.302A Unspecified open wound, left foot, initial encounter (principal); M79.89 Other specified soft tissue disorders; X58.XXXA Exposure to other specified factors, initial encounter; L72.9 Follicular cyst of the skin and subcutaneous tissue, unspecified | CPT/HCPCS: 73630 ==

== ENCOUNTER 2025-02-26 09:58 | Outpatient (CLI) | payer BC, SELFPAY ==
--- NOTE | 2025-02-26 10:15 | MR_ITS ---
WS: [id number] MRI LEFT FOOT WITH AND WITHOUT CONTRAST. COMPARISON: LEFT foot 02/19/2015. Multiplanar, multisequence imaging is performed with and without contrast. MultiHance 14 mL. Multiloculated cystic mass along the dorsal surface of the foot at the medial and intermediate cuneiforms. Lobulated cystic mass extends over a width of 1.3 cm x 0.5 cm anterior posterior and a length of 1.2 cm. This mass is closely associated with the extensor hallucis longus tendon and also extends close to the anterior tibialis tendon. The cystic mass is situated between the extensor digitorum longus tendon and the bone. There is peripheral enhancement on the postcontrast imaging. No significant amount of edema. No marrow edema or fractures. Bones of the visualized foot and ankle are unremarkable. No osteochondral defect at the talus. Normal syndesmosis. No joint effusion. Flexor tendons and the peroneal tendons are normal. Anterior and posterior talofibular ligaments are normal. Anterior inferior and posterior inferior tibiotalar ligaments are normal. Normal deltoid ligament. MR/MR foot LT wo/w con [id number] IMPRESSION: 1. Lobulated cystic mass with peripheral enhancement centered along the dorsal surface of the foot at the level of the medial and intermediate cuneiforms. 2. Lobulated mass measures 1.3 x 0.5 x 1.2 cm and there is peripheral enhancem ent. Most consistent with a ganglioma. 3. Cystic masses most closely associated with the extensor hallucis longus ten don. There is slight contact of the ganglion with the anterior tibialis tendon also.
[2025-02-26] MEDS: gadobenate dimeglumine 20 mL vial 14 ML IV (10:48)
== END 2025-02-26 09:59 | disposition home or self-care (01) ==
LOC: RAD 10:00
PROVIDERS: Family Provider Nurse Practitioner Family; PCP Nurse Practitioner Family; Visit Provider Podiatrist Foot & Ankle Surgery
DX: M79.89 Other specified soft tissue disorders (principal); R22.42 Localized swelling, mass and lump, left lower limb
CPT/HCPCS: 73720

== ENCOUNTER → 2025-03-09 06:19 | Day surgery (SDC) | payer BC, SELFPAY ==
[2025-03-09] VITALS (8 sets, daily range): BP systolic 90–120; BP diastolic 56–78; PULSE 51–77; RESP 14–18; TEMP 36.1–36.4; O2SAT 94–100; BMI 24.2
[2025-03-09] MEDS: gabapentin 300 mg Capsule PO (06:48)
[2025-03-09] MEDS: CELEcoxib 200 mg Capsule 400 MG PO (06:48)
[2025-03-09] MEDS: scopolamine 1 mg PATCH 1 PATCH TRANSDERMA (06:49)
[2025-03-09] MEDS: sodium chloride 0.9% 1,000 ML 30 ML IV (06:53)
--- NOTE | 2025-03-09 07:30 | ANES.PREANE2 ---
Pre-Anesthetic Assessment Height/Weight: Height 5 ft 6 in Weight 150 lb Temp Pulse Resp BP Pulse Ox O2 Del Method 97.6 F 77 18 120/76 100 Room Air 03/09/25 06:38 03/09/25 06:38 03/09/25 06:38 03/09/25 06:38 03/09/25 06:38 03/09/25 06:41 Preop Diagnosis: Soft tissue mass left foot Operation Date: 03/09/25 08:05 Proposed Procedures p Left Foot Soft Tissue Excision Mass/Lesion(Left) - ANTHONY SimmsM Was Beta Tere taken within 24 hours: N/A Was Clonidine taken within 24 hours: N/A Last intake: Intake Last Liquid Date 03/08/25 Last Liquid Time 22:30 Last Solid Date 03/08/25 Last Solid Time 20:00 Social Tobacco and No alcohol Exam alert, oriented x 3 and regular rate & rhythm Airway Submandibular: within normal limits Cervical ROM: within normal limits Mallampati: Class II Dentition: full Anesthetic Plan ASA status: 2 Anesthesia: MAC Other: History of PONV with both prior C-sections NPO since yesterday evening Current smoker Scopolamine patch applied METs greater than 4 Plan for MAC anesthesia with local via surgeon Medications/Allergies Home Medications ?Medication ?Instructions ?Recorded ?Confirmed ?Last Taken ?Type cetirizine 10 mg tablet (Zyrtec) 10 mg PO DAILY 02/19/25 03/05/25 03/05/25 History fluoxetine 20 mg capsule 20 mg PO DAILY 03/05/25 03/05/25 03/05/25 History ibuprofen 200 mg tablet 800 mg PO Q6H PRN Pain 03/05/25 03/05/25 03/05/25 History naproxen 250 mg tablet 250 mg PO BID 03/05/25 03/05/25 03/05/25 History Allergies Allergy/AdvReac Type Severity Reaction Status Date / Time Penicillins Allergy Rash with Verified 02/19/25 15:27 Amoxicillin Current Medications Generic Name Dose Route Start Last Admin Trade Name Freq PRN Reason Stop Dose Admin Sodium Chloride 1,000 mls @ 30 mls/hr 03/09/25 06:30 03/09/25 06:53 Sodium Chloride 0.9% IV 03/10/25 06:29 30 mls/hr .Q24H ROMA Administration PFSH Anesthesia Medical History Anxiety and depression No pertinent past medical history neg hx: hypertension, diabetes, thyroid, DVT/PE Dr. Gomez Blood type O+ Surgical History H/O tubal ligation (01/20/20) Bilateral complete salpingectomy performed at . Performed by Dr. Olivarez at [facility] in [place], [place] History of section (01/20/20) Repeat LTCS with complete salpingectomy. Performed by Dr. Olivarez at [facility] in [place], [place] History of delivery (11/28/13) Primary LTCS. Dx: Bleeding placenta previa. Performed by Dr. Olivarez at [facility] in [place], [place]. Family History Mother Hypertension Father Hypertension Grandfather Hypertension Maternal and Paternal Heart disease Maternal and Paternal Hyperlipidemia Maternal and Paternal Grandmother Hypertension Maternal and Paternal Diabetes Maternal Heart disease Maternal Stroke Paternal Hyperlipidemia Maternal and paternal Colon cancer Maternal - diagnosed in her 60s Breast cancer great great maternal grandmother, diagnosed in her 60's Family/Other Breast cancer maternal great aunts and cousins, unsure age of onset Denies family history of Ovarian cancer Uterine cancer Social History Smoking and tobacco/nicotine status: current every day tobacco/nicotine user Female Reproductive History Para: 1 Spontaneous abortions: Yes (2)
--- NOTE | 2025-03-09 07:48 | P.HPUD_ITS ---
Surgery/Procedure H&P Update DATE OF PROCEDURE: March 09, 2025 DATE H&P PERFORMED: 02/19/25 H&P UPDATE INFORMATION: I have reviewed H&P completed within last 30 days, I have examined patient prior to procedure, No changes to prior documentation, H&P is in [facility] EMR on date indicated and Risks and benefits of the procedure reviewed PREOP DIAGNOSIS: Soft tissue mass left foot PLANNED PROCEDURE: Operation Date: 03/09/25 08:05 Proposed Procedures p Left Foot Soft Tissue Excision Mass/Lesion(Left) - Pranav Vieira DPM
[2025-03-09] MEDS: clindamycin 600 MG/50 ML PREMIX 100 MG IV (08:01)
[2025-03-09 08:09] LABS: OR HCG Qualitative Urine Negative (Negative)
[2025-03-09] MEDS: BUPivacaine 0.5% INJ 30 mL INJECTION (08:22)
--- NOTE | 2025-03-09 09:00 | P.OP_ITS ---
Operative Report Date of procedure: March 09, 2025 Surgeon: Pranav Vieira DPM Procedure: Date of procedure: 03/09/2025 Pre-op diagnosis: Soft tissue mass left foot Post-op diagnosis: Same Post-op findings: Ganglion cyst left foot measuring 2.0 x 1.5 x 1.5 cm Procedure done: Left foot soft tissue mass excision CPT 56378 Implants: None Specimens removed: Soft tissue mass left foot measuring 2.0 x 1.5 x 1.5 cm Surgeon: Dr. Pranav Vieira DPM Business Solutions Architect: Sonia Estimated blood loss: 5 cc Tourniquet time: 34 minutes Complications: None Patient is a 34-year-old female that has a history of left foot soft tissue mass. The patient has had the aforementioned chief complaint for some time. Conservative treatment measures have been attempted and the patient has opted for surgical intervention at this time. A lengthy discussion regarding the procedure, including risks and complications has been had with the patient and is noted in the recent clinic note. Written and verbal consent have been obtained. All patient questions have been answered to the patient?s satisfaction. No written or verbal guarantees have been given or implied. The patient has been NPO since midnight. The history has been reviewed and the history and physical is current. The signed consent was confirmed and placed in the patient chart. Patient imaging has been reviewed and is consistent with the diagnosis. Under mild sedation, the patient was brought into the operating room and placed on the table in the supine position. IV antibiotics were given by the anesthesia team as preoperative surgical prophylaxis. MAC left ankle sedation was then performed by the anesthesiateam. A local field block was performed using 0.5% Marcaine plain. A pneumatic tourniquet was then placed about the left ankle. The operative extremity was then prepped and draped in the usual fashion. The extremity was then elevated and exsanguinated before the tourniquet was inflated to 250 mmHg. After inflation, the following procedure was then performed. Attention was directed to the left foot where a 4.5 cm incision was made overlying the soft tissue mass located at the base of the second metatarsal. Dissection is carried down to subcutaneous the superficial fascia. Dissection is carried out to expose the neurovascular bundle. This was identified and retracted out of the operative field. Extensor hallucis brevis muscle belly was dissected and retracted laterally out of the operative field. Under the neurovascular bundle was a soft tissue mass. Well-circumscribed, yellowish- whitish in coloration with well defined edges. Dissection was carried out circ umferentially around the soft tissue mass and it was resected from the foot past from the operative field. It measured 2.0 x 1.5 x 1.5 cm. Had the appearance of ganglion cyst. Stock appear to be coming from second tarsometatarsal reticulation. This was cauterized with electrocautery. Site was irrigated with copious amounts of sterile saline. No residual soft tissue mass remained. Deep tissue was closed with 4-0 Vicryl followed by subcuticular closure with 4-0 Vicryl and skin closed with 4-0 nylon. Tourniquet was let down and good hyperemic response was noted to all digits of the left foot. Incision site was dressed with Xeroform, 4 x 4 gauze, Kerlix, Angel. Patient was placed in a cam boot. The patient tolerated the procedure and anesthesia well and without complication. The patient was transported from the operating room to the recovery room with vital signs stable and vascular status intact to all digits of the left foot. The patient was given both written and verbal instructions to remain weightbearing as tolerated in cam boot to the operative extremity, to keep dressings/splint clean, dry and intact and to take pain medication as directed. The patient will follow-up in the outpatient setting at their scheduled appointment. The patient was discharged with my personal number and was instructed to call if any questions or issues should arise. They were discharged home once anesthesia criteria was met.
--- NOTE | 2025-03-09 10:20 | ANE.PACU2 ---
Inpatient post-anesthesia follow up: Airway intact: Yes Vital signs: Temperature 97.1 F Pulse Rate 57 Respiratory Rate 17 Blood Pressure 112/78 Pulse Oximetry 100 Oxygen Delivery Me thod Room Air Oxygen Flow Rate Fraction of Inspir ed Oxygen Hydration adequate: Yes Nausea and vomiting: No Pain level: 1 Mental status: Baseline
== END | disposition home or self-care (01) ==
PROVIDERS: Student in an Organized Health Care Education/Training Program; PCP Nurse Practitioner Family; Visit Provider Podiatrist Foot & Ankle Surgery
PROC: (CPT 28090; principal; 2025-03-09 07:55)
DX: M67.472 Ganglion, left ankle and foot (principal); F17.200 Nicotine dependence, unspecified, uncomplicated; F41.8 Other specified anxiety disorders
CPT/HCPCS: 28090; 81025; 88307; J2250; J2704; J3010; J3490; J7030; J9999

== ENCOUNTER → 2025-06-11 11:05 | Outpatient (BNVA) | payer BC, SELFPAY | PROVIDERS: PCP Nurse Practitioner Family; Visit Provider Podiatrist Foot & Ankle Surgery | DX: L72.9 Follicular cyst of the skin and subcutaneous tissue, unspecified (principal); M79.89 Other specified soft tissue disorders | CPT/HCPCS: 88112 ==